=== PATIENT | male | born 1985 ===

== ENCOUNTER 2022-05-25 18:37 | Inpatient (IN) | payer OTHER, BC ==
[~2022-05-25] VITALS: Ht 182.9 cm; Wt 102.0 kg
[~2022-05-25 18:37] MED LIST: CETI10 PO; CYCL10 PO; DIPH50 PO; HYDACE5 PO; METPRE4DP PO; RXHYDACE PO
[2022-05-25 19:24] LABS: Hematocrit 41.9 % (37.0-53.0); Hemoglobin 15.1 g/dL (13.5-17.5); Mean Corpuscular HGB 29.6 pg (26.0-34.0); Mean Corpuscular Volume 82 fL (80-100); Mean Platelet Volume 10.7 fL (9.1-12.4); Platelet Count 310 K/mm3 (150-400); RDW Coefficient Variation 11.9 % (11.7-14.2); RDW Standard Deviation 35.9 fL (35.1-46.3); White Blood Cell Count 24.82 K/mm3 (4.00-11.30)
[2022-05-25 19:33] LABS: Albumin, Blood 2.5 g/dL (3.4-5.0); Albumin/Globulin Ratio 0.5 (0.8-1.8); Bilirubin, Total 1.2 mg/dL (0.1-1.0); Bun/Creatinine Ratio 18.2 (12.0-20.0); Calcium, Blood 8.3 mg/dL (8.5-10.1); Creatinine, Blood 0.71 mg/dL (0.60-1.20); Globulin, Blood 5.3 g/dL (2.2-4.0); Potassium, Blood 4.2 mmol/L (3.5-5.5); Total Protein, Blood 7.8 g/dL (6.4-8.2)
[2022-05-25 19:48] LABS: BAND PERCENT MAN 3 % (0-8); BASOPHILS PERCENT MAN 0 % (0-2); EOSINOPHILS PERCENT MAN 0 % (0-6); LYMPHOCYTES ABSOLUTE MAN 1.48 K/mm3 (0.84-5.20); LYMPHOCYTES PERCENT MAN 6 % (21-46); MONOCYTES ABSOLUTE MAN 2.48 K/mm3 (0.16-1.47); MONOCYTES PERCENT MAN 10 % (4-13); NEUTROPHILS ABSOLUTE MAN 20.84 K/mm3 (1.96-9.15); SEG NEUTROPHILS PERCENT MAN 81 % (41-73); TOTAL CELLS COUNTED 100
[2022-05-25 19:52] LABS: Influenza A, PCR NEGATIVE (NEGATIVE); Influenza B, PCR NEGATIVE (NEGATIVE); Resp Syncytial Virus, PCR NEGATIVE (NEGATIVE); SARS-Cov-2 (COVID-19) PCR, MMC NEGATIVE (NEGATIVE)
[2022-05-25 20:13] LABS: Beta-hydroxybutyrate 10.9 mg/dL (0.2-2.8)
[2022-05-25 21:10] LABS: Bicarbonate Venous 25.5 mmol/L (24.0-30.0); PCO2 Venous 37.3 mmHg (38-42); pH Blood Venous 7.44 (7.34-7.37)
[2022-05-25 23:30] LABS: Bun/Creatinine Ratio 12.9 (12.0-20.0); Calcium, Blood 7.6 mg/dL (8.5-10.1); Creatinine, Blood 0.85 mg/dL (0.60-1.20); Potassium, Blood 4.6 mmol/L (3.5-5.5)
[2022-05-26 06:04] LABS: Hemoglobin 13.3 g/dL (13.5-17.5); Mean Corpuscular HGB 29.4 pg (26.0-34.0); Mean Corpuscular Volume 84 fL (80-100); Mean Platelet Volume 10.8 fL (9.1-12.4); Platelet Count 266 K/mm3 (150-400); RDW Coefficient Variation 12.2 % (11.7-14.2); RDW Standard Deviation 37.4 fL (35.1-46.3); Red Blood Cell Count 4.53 M/mm3 (4.30-5.90); White Blood Cell Count 25.05 K/mm3 (4.00-11.30)
[2022-05-26 06:15] LABS: Albumin/Globulin Ratio 0.5 (0.8-1.8); Bun/Creatinine Ratio 15.1 (12.0-20.0); Calcium, Blood 7.4 mg/dL (8.5-10.1); Creatinine, Blood 0.73 mg/dL (0.60-1.20); Globulin, Blood 4.4 g/dL (2.2-4.0); Potassium, Blood 4.1 mmol/L (3.5-5.5); Total Protein, Blood 6.4 g/dL (6.4-8.2)
[2022-05-26 07:26] LABS: BAND PERCENT MAN 15 % (0-8); BASOPHILS PERCENT MAN 0 % (0-2); EOSINOPHILS PERCENT MAN 0 % (0-6); LYMPHOCYTES PERCENT MAN 4 % (21-46); MONOCYTES PERCENT MAN 4 % (4-13); NEUTROPHILS ABSOLUTE MAN 23.04 K/mm3 (1.96-9.15); SEG NEUTROPHILS PERCENT MAN 77 % (41-73); TOTAL CELLS COUNTED 100
--- NOTE | 2022-05-26 14:40 | NUR ---
ARRIVAL TO MEDICAL FLOOR: PT ARRIVED TO MEDICAL FLOOR AT 1330 VIA ER BED. PT IV'S CURRENTLY RUNNING WITH NS AND VACOMYCIN. PT WAS SHOWN HOW TO USE CALL LIGHT. TALK TO THE DOCTOR WHO PUT IN AN ORDER FOR TELE. AWAITING ARRIVAL FOR TELE BOX. PT'S IN ROOM. PT IS NOT C/O PAIN OR NAUSEA AT THIS TIME.
[2022-05-26] MEDS ORDERED: HUMALOG100 UNIT/1 (17:28)
--- NOTE | 2022-05-26 17:49 | NUR ---
SHIFT SUMMARY: PATIENT ALERT AND ORIENTED X4. PT ARRIVED FROM ED AROUND 1530. TELE WAS APPLIED TO PT DUE TO TACHYCARDIA. IV CURRENTLY INFUSING WITH NS W/O PAIN OR REDNESS. PT IS PLEASANT AND COOPERATIVE WITH ALL CARE. PT PLACED ON A CARB INSULIN DIET. PT ARRIVED WITH A TEMP OF 100.7. GAVE HIM 650MG OF TYLENOL TO HELP WITH THE FEVER. PT'S IN ROOM AND HELPING WITH CARE. NO NEEDS AT THIS TIME. CALL LIGHT IN REACH. BED IN LOWEST POSITION. WILL CONTINUE TO MONITOR.
[2022-05-27 05:32] LABS: BASOPHILS ABSOLUTE AUTO 0.08 K/mm3 (0.00-0.23); BASOPHILS PERCENT AUTO 0 % (0-2); EOSINOPHILS ABSOLUTE AUTO 0.02 K/mm3 (0.00-0.68); EOSINOPHILS PERCENT AUTO 0 % (0-6); Hematocrit 37.3 % (37.0-53.0); Hemoglobin 13.2 g/dL (13.5-17.5); IMMATURE GRAN ABSOLUTE AUTO 0.41 K/mm3 (0.00-0.10); IMMATURE GRAN PERCENT AUTO 2 % (0-1); LYMPHOCYTES ABSOLUTE AUTO 1.49 K/mm3 (0.84-5.20); LYMPHOCYTES PERCENT AUTO 6 % (21-46); MONOCYTES ABSOLUTE AUTO 1.03 K/mm3 (0.16-1.47); MONOCYTES PERCENT AUTO 4 % (4-13); Mean Corpuscular HGB 29.3 pg (26.0-34.0); Mean Corpuscular HGB Conc 35.4 g/dL (31.5-36.5); Mean Corpuscular Volume 83 fL (80-100); Mean Platelet Volume 11.1 fL (9.1-12.4); NEUTROPHILS ABSOLUTE AUTO 21.52 K/mm3 (1.96-9.15); NEUTROPHILS PERCENT AUTO 88 % (41-73); Platelet Count 258 K/mm3 (150-400); RDW Coefficient Variation 12.6 % (11.7-14.2); RDW Standard Deviation 38.5 fL (35.1-46.3); White Blood Cell Count 24.55 K/mm3 (4.00-11.30)
[2022-05-27 05:53] LABS: Albumin, Blood 1.8 g/dL (3.4-5.0); Albumin/Globulin Ratio 0.4 (0.8-1.8); Bilirubin, Total 0.9 mg/dL (0.1-1.0); Bun/Creatinine Ratio 15.8 (12.0-20.0); Calcium, Blood 7.4 mg/dL (8.5-10.1); Creatinine, Blood 0.57 mg/dL (0.60-1.20); Globulin, Blood 4.3 g/dL (2.2-4.0); Total Protein, Blood 6.1 g/dL (6.4-8.2)
[2022-05-27 07:10] LABS: HIV AB/P24 AG SCREEN Non Reactive (Non Reactive)
--- NOTE | 2022-05-27 07:25 | NUR ---
A/OX4; CALM/ COOPERATIVE. DENIES PAIN AND DENIES NAUSEA. SBA TO BR. LUNGS DIMINISHED/ SHALLOW. 4L NC. TELE: ST 120s. ABX PER ORDER CALL LIGHT IN REACH; ENCOURAGED TO MAKE NEEDS KNOWN. EARPLUGS PROVIDED/ SLEEP PROMOTED.
[2022-05-27 13:23] LABS: Vancomycin, Trough 5.8 ug/mL (5.0-10.0)
--- NOTE | 2022-05-27 17:43 | NUR ---
SHIFT SUMMARY NO ACUTE CHANGES DURING SHIFT. PT ALERT AND ORIENTED, CALLS APPROPRIATELY. PT ON 4L NC, SPO2 > 92%. PT SBA TO BATHROOM. PT FEBRILE THIS AFTERNOON, 102.0, MEDICATED WITH TYLENOL. MONITOR FOR EFFECTIVENESS. PT ON PRECAUTIONS TO R/O CDIFF D/T MULTIPLE OCCURENCES OF DIARRHEA. WILL CONTINUE TO MONITOR. CALL LIGHT WITHIN REACH.
[2022-05-28 05:57] LABS: Adenovirus F 40/41 Not Detected (NOT DETECT); Astrovirus Not Detected (NOT DETECT); Campylobacter Sp Not Detected (NOT DETECT); Cryptosporidium Not Detected (NOT DETECT); Cyclospora Cayetanensis Not Detected (NOT DETECT); E. Coli O157 Not Detected (NOT DETECT); Entamoeba Histolytica Not Detected (NOT DETECT); Enteroaggregative E. coli-EAEC Not Detected (NOT DETECT); Enteropathogenic E. coli-EPEC Not Detected (NOT DETECT); Enterotoxigenic E. coli-ETEC Not Detected (NOT DETECT); Giardia Lamblia Not Detected (NOT DETECT); Norovirus GI/GII Not Detected (NOT DETECT); Plesiomonas Shigelloides Not Detected (NOT DETECT); Rotavirus A Not Detected (NOT DETECT); Salmonella Sp Not Detected (NOT DETECT); Sapovirus Not Detected (NOT DETECT); Shiga Toxin-prod E. coli-STEC Not Detected (NOT DETECT); Shigella/Enteroin E. coli-EIEC Not Detected (NOT DETECT); Vibrio Cholerae Not Detected (NOT DETECT); Vibrio Sp Not Detected (NOT DETECT); Yersinia Enterocolitica Not Detected (NOT DETECT)
[2022-05-28 06:05] LABS: BASOPHILS ABSOLUTE AUTO 0.04 K/mm3 (0.00-0.23); BASOPHILS PERCENT AUTO 0 % (0-2); EOSINOPHILS ABSOLUTE AUTO 0.03 K/mm3 (0.00-0.68); EOSINOPHILS PERCENT AUTO 0 % (0-6); Hematocrit 34.9 % (37.0-53.0); Hemoglobin 12.5 g/dL (13.5-17.5); IMMATURE GRAN PERCENT AUTO 2 % (0-1); LYMPHOCYTES ABSOLUTE AUTO 1.31 K/mm3 (0.84-5.20); LYMPHOCYTES PERCENT AUTO 8 % (21-46); MONOCYTES ABSOLUTE AUTO 0.98 K/mm3 (0.16-1.47); MONOCYTES PERCENT AUTO 6 % (4-13); Mean Corpuscular HGB 29.2 pg (26.0-34.0); Mean Corpuscular HGB Conc 35.8 g/dL (31.5-36.5); Mean Corpuscular Volume 82 fL (80-100); NEUTROPHILS ABSOLUTE AUTO 14.02 K/mm3 (1.96-9.15); NEUTROPHILS PERCENT AUTO 84 % (41-73); Platelet Count 251 K/mm3 (150-400); RDW Coefficient Variation 12.6 % (11.7-14.2); RDW Standard Deviation 37.7 fL (35.1-46.3); Red Blood Cell Count 4.28 M/mm3 (4.30-5.90); White Blood Cell Count 16.78 K/mm3 (4.00-11.30)
[2022-05-28 06:33] LABS: Albumin, Blood 1.7 g/dL (3.4-5.0); Albumin/Globulin Ratio 0.4 (0.8-1.8); Bilirubin, Total 1.3 mg/dL (0.1-1.0); Bun/Creatinine Ratio 14.1 (12.0-20.0); Calcium, Blood 7.5 mg/dL (8.5-10.1); Creatinine, Blood 0.57 mg/dL (0.60-1.20); Globulin, Blood 4.5 g/dL (2.2-4.0); Potassium, Blood 3.4 mmol/L (3.5-5.5); Total Protein, Blood 6.2 g/dL (6.4-8.2)
--- NOTE | 2022-05-28 17:50 | NUR ---
SHIFT SUMMARY NO ACUTE CHANGES DURING SHIFT. PT ALERT AND ORIENTED, CALLS APPROPRIATELY. PT REMAINS ON 4L NC, SPO2 > 92%. IV ABX CHANGED TODAY, PT REMAINS FEBRILE. PRN TYLENOL ADMINISTERED PER EMAR. PT INDEPENDENT IN ROOM. CDIFF RESULTS -, PRECAUTIONS REMOVED. WILL CONTINUE TO MONITOR. CALL LIGHT WITHIN REACH.
--- NOTE | 2022-05-29 04:28 | NUR ---
A/OX4; CALM, PLEASANT, AND COOPERATIVE. 4 L O2 VIA NC; SPO2 LOW 90s. IVF AND IV ABX PER EMAR ORDERS. TYLENOL GIVEN FOR 4/10 GENERALIZED ACHING; SLEEPING AT REASSESSMENT. SBA AT NIGHT (DIZZY AT TIMES, IV LINE). SLEEP PROMOTED. BED ALARM SET. CALL LIGHT IN REACH; ENCOURAGED TO MAKE NEEDS KNOWN.
[2022-05-29 06:08] LABS: HIV AB/P24 AG SCREEN Non Reactive (Non Reactive)
[2022-05-29 06:21] LABS: BASOPHILS ABSOLUTE AUTO 0.06 K/mm3 (0.00-0.23); BASOPHILS PERCENT AUTO 0 % (0-2); EOSINOPHILS ABSOLUTE AUTO 0.02 K/mm3 (0.00-0.68); EOSINOPHILS PERCENT AUTO 0 % (0-6); Hematocrit 38.6 % (37.0-53.0); Hemoglobin 13.1 g/dL (13.5-17.5); IMMATURE GRAN ABSOLUTE AUTO 0.38 K/mm3 (0.00-0.10); IMMATURE GRAN PERCENT AUTO 3 % (0-1); LYMPHOCYTES PERCENT AUTO 9 % (21-46); MONOCYTES ABSOLUTE AUTO 0.95 K/mm3 (0.16-1.47); MONOCYTES PERCENT AUTO 7 % (4-13); Mean Corpuscular HGB 28.7 pg (26.0-34.0); Mean Corpuscular HGB Conc 33.9 g/dL (31.5-36.5); Mean Corpuscular Volume 85 fL (80-100); Mean Platelet Volume 10.6 fL (9.1-12.4); NEUTROPHILS ABSOLUTE AUTO 11.13 K/mm3 (1.96-9.15); NEUTROPHILS PERCENT AUTO 81 % (41-73); Platelet Count 295 K/mm3 (150-400); RDW Coefficient Variation 13.1 % (11.7-14.2); RDW Standard Deviation 39.9 fL (35.1-46.3); Red Blood Cell Count 4.57 M/mm3 (4.30-5.90); White Blood Cell Count 13.74 K/mm3 (4.00-11.30)
[2022-05-29 06:33] LABS: Albumin, Blood 1.7 g/dL (3.4-5.0); Albumin/Globulin Ratio 0.4 (0.8-1.8); Bilirubin, Total 1.1 mg/dL (0.1-1.0); Bun/Creatinine Ratio 14.4 (12.0-20.0); Calcium, Blood 7.5 mg/dL (8.5-10.1); Creatinine, Blood 0.55 mg/dL (0.60-1.20); Globulin, Blood 4.5 g/dL (2.2-4.0); Potassium, Blood 3.3 mmol/L (3.5-5.5); Total Protein, Blood 6.2 g/dL (6.4-8.2)
--- NOTE | 2022-05-29 17:45 | NUR ---
SHIFT SUMMARY AXO, PLEASANT AND COOPERATIVE WITH CARE. VSS THOUGH PT MEDICATED FOR FEVER X1 THIS SHIFT PER EMAR. CBG ACHS, MEDICATED PER EMAR. NO ACUTE CHANGES THIS SHIFT. PT OOB WITH ASSISTANCE OF HIS SPOUSE WHO IS AT BEDSIDE PT ON 2.5L VIA NC, 93%. IV PATENT AND INFUSING PER EMAR. BED IN LOW POSITION, CALL LIGHT WITHIN REACH.
--- NOTE | 2022-05-30 05:01 | NUR ---
A/OX4; CALM, PLEASANT, AND COOPERATIVE. 4 L O2 VIA NC; SPO2 MID 90s. IVF AND IV ABX PER EMAR ORDERS. SBA AT NIGHT (DIZZY AT TIMES, IV LINE). SLEEP PROMOTED. BED ALARM SET. CALL LIGHT IN REACH; ENCOURAGED TO MAKE NEEDS KNOWN.
[2022-05-30 06:52] LABS: Hematocrit 35.9 % (37.0-53.0); Hemoglobin 12.5 g/dL (13.5-17.5); Mean Corpuscular HGB 29.3 pg (26.0-34.0); Mean Corpuscular HGB Conc 34.8 g/dL (31.5-36.5); Mean Corpuscular Volume 84 fL (80-100); Mean Platelet Volume 10.8 fL (9.1-12.4); Platelet Count 338 K/mm3 (150-400); RDW Coefficient Variation 13.2 % (11.7-14.2); RDW Standard Deviation 39.8 fL (35.1-46.3); Red Blood Cell Count 4.26 M/mm3 (4.30-5.90); White Blood Cell Count 13.75 K/mm3 (4.00-11.30)
[2022-05-30 07:11] LABS: Albumin, Blood 1.7 g/dL (3.4-5.0); Albumin/Globulin Ratio 0.4 (0.8-1.8); Bilirubin, Total 0.9 mg/dL (0.1-1.0); Bun/Creatinine Ratio 13.8 (12.0-20.0); Calcium, Blood 7.6 mg/dL (8.5-10.1); Creatinine, Blood 0.51 mg/dL (0.60-1.20); Globulin, Blood 4.5 g/dL (2.2-4.0); Potassium, Blood 3.3 mmol/L (3.5-5.5); Total Protein, Blood 6.2 g/dL (6.4-8.2)
[2022-05-30 09:00] LABS: BAND PERCENT MAN 1 % (0-8); BASOPHILS PERCENT MAN 0 % (0-2); EOSINOPHILS PERCENT MAN 0 % (0-6); LYMPHOCYTES ABSOLUTE MAN 1.65 K/mm3 (0.84-5.20); LYMPHOCYTES PERCENT MAN 12 % (21-46); MONOCYTES ABSOLUTE MAN 0.55 K/mm3 (0.16-1.47); MONOCYTES PERCENT MAN 4 % (4-13); MYELOCYTE ABSOLUTE MAN 0.27 K/mm3 (0.00-0.00); MYELOCYTE PERCENT MAN 2 % (0-0); NEUTROPHILS ABSOLUTE MAN 11.27 K/mm3 (1.96-9.15); SEG NEUTROPHILS PERCENT MAN 81 % (41-73); TOTAL CELLS COUNTED 100
--- NOTE | 2022-05-30 12:50 | NUR ---
INITIAL SKIN ASSESSMENT: DISCUSSED SKIN WITH THE PATIENT, ESPECIALLY POTENTIAL PRESSURE POINTS. PATIENT REPORTS TENDERNESS AT HIS COCCYX. SMALL REDDEDENED AREA PRESENT AROUND THE COCCYX. AT THE CENTER IS A 1CM X 1CM [place]O [place] THAT IS NON-BLANCHABLE. MEPILEX PLACED. EDUCATION PROVIDED ON PRESSURE INJURIES. HEAD TO TOE SKIN ASSESSMENT PERFORMED WITH KATHARINA BATISTA RN.
--- NOTE | 2022-05-30 19:53 | NUR ---
END OF SHIFT SUMMARY: PATIENT DENIED PAIN OR DISCOMFORT THROUGHOUT THE SHIFT. PATIENT DENIED SHORTNESS OF BREATH OR DIFFICULTY BREATHING. PATIENT UP TO THE SHOWER - TOLERATED WELL. PATIENT REPORTED DISSATISFACTION WITH HIS INITIAL EDUCATION ON DIABETES 4 YEARS AGO. CONSULTED WITH THIRD SHIFT LIEUTENANT WHO WAS ABLE TO SPEND TIME EDUCATING AND ANSWERING QUESTIONS. PATIENT EXPRESSES MOTIVATION TO IMPROVE HIS DIET AND EXERCISE AND GAIN BETTER CONTROL OVER HIS DIABETES. PATIENT'S AT BEDSIDE THIS EVENING. SHE IS SUPPORTIVE OF THE PATIENT AND INVOLVED WITH HIS HEALTH AND PLAN OF CARE.
[2022-05-31 06:03] LABS: Hematocrit 37.4 % (37.0-53.0); Hemoglobin 12.8 g/dL (13.5-17.5); Mean Corpuscular HGB 28.9 pg (26.0-34.0); Mean Corpuscular HGB Conc 34.2 g/dL (31.5-36.5); Mean Corpuscular Volume 84 fL (80-100); Mean Platelet Volume 10.1 fL (9.1-12.4); Platelet Count 412 K/mm3 (150-400); RDW Coefficient Variation 13.2 % (11.7-14.2); RDW Standard Deviation 40.9 fL (35.1-46.3); Red Blood Cell Count 4.43 M/mm3 (4.30-5.90); White Blood Cell Count 11.82 K/mm3 (4.00-11.30)
[2022-05-31 06:31] LABS: BAND PERCENT MAN 1 % (0-8); BASOPHILS PERCENT MAN 0 % (0-2); EOSINOPHILS ABSOLUTE MAN 0.23 K/mm3 (0.00-0.68); EOSINOPHILS PERCENT MAN 2 % (0-6); LYMPHOCYTES ABSOLUTE MAN 0.94 K/mm3 (0.84-5.20); LYMPHOCYTES PERCENT MAN 8 % (21-46); METAMYELOCYTE ABSOLUTE MAN 0.11 K/mm3 (0.00-0.00); METAMYELOCYTE PERCENT MAN 1 % (0-0); MONOCYTES ABSOLUTE MAN 0.47 K/mm3 (0.16-1.47); MONOCYTES PERCENT MAN 4 % (4-13); MYELOCYTE ABSOLUTE MAN 0.11 K/mm3 (0.00-0.00); MYELOCYTE PERCENT MAN 1 % (0-0); NEUTROPHILS ABSOLUTE MAN 9.92 K/mm3 (1.96-9.15); SEG NEUTROPHILS PERCENT MAN 83 % (41-73); TOTAL CELLS COUNTED 100
[2022-05-31 06:38] LABS: Albumin, Blood 1.7 g/dL (3.4-5.0); Albumin/Globulin Ratio 0.4 (0.8-1.8); Bilirubin, Total 0.8 mg/dL (0.1-1.0); Bun/Creatinine Ratio 14.6 (12.0-20.0); Calcium, Blood 7.7 mg/dL (8.5-10.1); Creatinine, Blood 0.55 mg/dL (0.60-1.20); Globulin, Blood 4.5 g/dL (2.2-4.0); Potassium, Blood 3.6 mmol/L (3.5-5.5); Total Protein, Blood 6.2 g/dL (6.4-8.2)
--- NOTE | 2022-05-31 07:30 | NUR ---
A/OX4; CALM, PLEASANT, AND COOPERATIVE. 4 L O2 VIA NC; SPO2 MID 90s. CRACKLES BLL. IVF AND IV ABX PER EMAR ORDERS. SBA AT NIGHT (DIZZY AT TIMES, IV LINE). CARE CLUSTERED/ SLEEP PROMOTED. BED ALARM SET. CALL LIGHT IN REACH; ENCOURAGED TO MAKE NEEDS KNOWN.
--- NOTE | 2022-05-31 17:06 | NUR ---
SHIFT SUMMARY: PATIENT A&OX4. PLEASANT, CALM AND COOPERATIVE WITH CARE. USES CALL LIGHT APPROPRIATELY AND ABLE TO ADVOCATE FOR HIS NEEDS. PATIENT HAD A LOW GRADE FEVER 99.1-99.3 THIS SHIFT. RECEIVED SCHEDULED ANTIBIOTICS. PATIENT ON 3L VIA NC c SPO2 92% T/O SHIFT. DENIES SOB. LUNGS HAS FINE CRACKLES T/O TO AUSCULTATION. PATIENT BS THIS SHIFT RANGES FROM 199-275. RECEIVED INSULIN PER EMAR SLIDING SCALE COVERAGE. IV TO L AC SALINE LOCKED AND IV TO R HAND INFUSING NS AT 75 MLS/HR. VITAL SIGNS REVEIWED. USES URINAL INDEPENDENTLY AT BEDSIDE. CALL LIGHT IN REACH.
[2022-06-01 05:43] LABS: Mean Corpuscular HGB 29.3 pg (26.0-34.0); Mean Corpuscular HGB Conc 34.2 g/dL (31.5-36.5); Mean Corpuscular Volume 86 fL (80-100); Mean Platelet Volume 9.7 fL (9.1-12.4); Platelet Count 451 K/mm3 (150-400); RDW Coefficient Variation 13.4 % (11.7-14.2); RDW Standard Deviation 41.7 fL (35.1-46.3); Red Blood Cell Count 4.44 M/mm3 (4.30-5.90); White Blood Cell Count 12.84 K/mm3 (4.00-11.30)
--- NOTE | 2022-06-01 06:04 | NUR ---
SPRAY MACHINE OPERATOR SUMMARY: A&Ox4. PLEASANT AND COOPERATIVE WITH CARE. CALLS APPROPRIATELY AND ABLE TO COMMUNICATE NEEDS EFFECTIVELY. INDEPENDENT WITHIN ROOM. VOIDING WITHOUT DIFFICULTY. NEW BAG OF FLUIDS HUNG @ MIDNIGHT. NO C/O PAIN OR DISCOMFORT. LABS DRAWN THIS AM. VSS. NO ACUTE CONCERNS T/O THE NIGHT. WILL REPORT TO ONCOMING RN.
[2022-06-01 06:10] LABS: Calcium, Blood 7.8 mg/dL (8.5-10.1); Creatinine, Blood 0.53 mg/dL (0.60-1.20); Potassium, Blood 3.6 mmol/L (3.5-5.5)
[2022-06-01 07:46] LABS: BAND PERCENT MAN 1 % (0-8); BASOPHILS PERCENT MAN 0 % (0-2); EOSINOPHILS ABSOLUTE MAN 0.12 K/mm3 (0.00-0.68); EOSINOPHILS PERCENT MAN 1 % (0-6); LYMPHOCYTES ABSOLUTE MAN 1.15 K/mm3 (0.84-5.20); LYMPHOCYTES PERCENT MAN 9 % (21-46); METAMYELOCYTE ABSOLUTE MAN 0.12 K/mm3 (0.00-0.00); METAMYELOCYTE PERCENT MAN 1 % (0-0); MONOCYTES ABSOLUTE MAN 0.51 K/mm3 (0.16-1.47); MONOCYTES PERCENT MAN 4 % (4-13); NEUTROPHILS ABSOLUTE MAN 10.91 K/mm3 (1.96-9.15); SEG NEUTROPHILS PERCENT MAN 84 % (41-73); TOTAL CELLS COUNTED 100
--- NOTE | 2022-06-01 18:00 | NUR ---
SHIFT SUMMARY: PT A&O X4, PLEASANT, COMMUNICATES WITH STAFF WELL. PT RECEVIED ABX W/O S/S OF ADVERSE REACTIONS. CHARGE NURSE ADRIEL PLACED POWERGLIDE PER DOCTOR ORDERS FOR OUTPATIENT ABX ADMINISTARTION POST DISCHARGE. PT AMBULATED TO THE BATHROOM AND SHOWERED INDEPENDANTLY. PT HAD NO COMPLAINTS OF PAIN THROUGHOUT THE SHIFT. PT A BEDSIDE THROUGHOUT THE SHIFT. PT IN BED WITH CALL LIGHT WITHIN REACH.
[2022-06-02 06:24] LABS: Hematocrit 43.6 % (37.0-53.0); Hemoglobin 14.4 g/dL (13.5-17.5); Mean Corpuscular HGB 28.9 pg (26.0-34.0); Mean Corpuscular Volume 88 fL (80-100); Mean Platelet Volume 9.4 fL (9.1-12.4); Platelet Count 531 K/mm3 (150-400); RDW Coefficient Variation 13.6 % (11.7-14.2); RDW Standard Deviation 42.9 fL (35.1-46.3); Red Blood Cell Count 4.98 M/mm3 (4.30-5.90); White Blood Cell Count 14.33 K/mm3 (4.00-11.30)
--- NOTE | 2022-06-02 06:53 | NUR ---
WELL LOGGING CAPTAIN MUD ANALYSIS SUMMARY: A&Ox4. PLEASANT AND COOPERATIVE WITH CARE. INDEPENDENT WITHIN ROOM. CALLS APPROPRIATELY AND IS ABLE TO COMMUNICATE NEEDS EFFECTIVELY. LABS DRAWNT THIS AM; NOTHING URGENT. ORDER FOR DIFLUCAN RECEIVED TO START AT 0900 FOR SPUTUM CULTURE + THRUSH. VSS. PLAN TO DC HOME TODAY. REPORT TO ONCOMING RN.
[2022-06-02 07:05] LABS: BAND PERCENT MAN 4 % (0-8); BASOPHILS PERCENT MAN 0 % (0-2); EOSINOPHILS PERCENT MAN 0 % (0-6); LYMPHOCYTES ABSOLUTE MAN 2.72 K/mm3 (0.84-5.20); LYMPHOCYTES PERCENT MAN 19 % (21-46); METAMYELOCYTE ABSOLUTE MAN 0.14 K/mm3 (0.00-0.00); METAMYELOCYTE PERCENT MAN 1 % (0-0); MONOCYTES ABSOLUTE MAN 0.71 K/mm3 (0.16-1.47); MONOCYTES PERCENT MAN 5 % (4-13); MYELOCYTE ABSOLUTE MAN 0.14 K/mm3 (0.00-0.00); MYELOCYTE PERCENT MAN 1 % (0-0); SEG NEUTROPHILS PERCENT MAN 70 % (41-73); TOTAL CELLS COUNTED 100
[2022-06-02 07:20] LABS: Albumin, Blood 2.1 g/dL (3.4-5.0); Albumin/Globulin Ratio 0.4 (0.8-1.8); Bilirubin, Total 0.6 mg/dL (0.1-1.0); Bun/Creatinine Ratio 28.2 (12.0-20.0); Calcium, Blood 8.7 mg/dL (8.5-10.1); Creatinine, Blood 0.53 mg/dL (0.60-1.20); Globulin, Blood 5.5 g/dL (2.2-4.0); Potassium, Blood 4.1 mmol/L (3.5-5.5); Total Protein, Blood 7.6 g/dL (6.4-8.2)
--- NOTE | 2022-06-02 19:14 | NUR ---
SHIFT SUMMARY: PT A&O X4, PLEASANT AND COOPERATIVE. PT HAD MILD COMPLAINTS OF BACK PAIN, PT HAS WARM THERAPY TO AID IN PAIN CONTROL AND PRN PAIN MEDICATION FOR PAIN MANAGEMENT. PT RECEVIED IV ABX WITH NO S/S OF ADVERSE REACTIONS. PT WAS ON 3L NC OF O2, PT O2 REMOVED PER DR. SARAVIA VERBAL ORDER. PT O2 STABLE WITH NO SOB OR DYSPNEA WITH MOVEMENT. PT IN BED WITH CALL LIGHT WITHIN REACH.
--- NOTE | 2022-06-03 03:21 | NUR ---
SHIFT SUMMARY; NO ACUTE CHANGES IN CONDITION NOTED DURING NOC SHIFT. PATIENT IS PLEASANT AND ALERT AND ORIENTED MALE. HE HAS A POWER GLIDE TO HIS UPPER RIGHT ARM THAT FLUSHES AND DRAWS. HIS LUNGS ARE CLEAR IN UPPER LOBES AND CRACKLES NOTED IN THE BASES. NO COUGH AT TIME OF ASSESSMENT. HE IS INDEPENDANT IN HIS ROOM AND IS ABLE TO USE CALL LIGHT TO MAKE HIS NEEDS KNOWN. HIS VITAL SIGNS ARE STABLE AND HIS HR IS 63. HE IS NOT FEBRILE. HE IS AO X 4. AND IS EAGER TO RETURN HOME. PER PATIENT HE IS NOT SURE WHY HE IS STILL HER IF HE CAN BE GETTING ANTIBIOTICS AT THE OUTPATIENT [facility]ION [facility]. WILL PASS ON HIS CONCERNS TO DAY SHIFT RN.
[2022-06-03 05:35] LABS: BASOPHILS ABSOLUTE AUTO 0.13 K/mm3 (0.00-0.23); BASOPHILS PERCENT AUTO 1 % (0-2); EOSINOPHILS ABSOLUTE AUTO 0.06 K/mm3 (0.00-0.68); EOSINOPHILS PERCENT AUTO 1 % (0-6); Hematocrit 42.6 % (37.0-53.0); Hemoglobin 14.5 g/dL (13.5-17.5); IMMATURE GRAN ABSOLUTE AUTO 0.72 K/mm3 (0.00-0.10); IMMATURE GRAN PERCENT AUTO 6 % (0-1); LYMPHOCYTES ABSOLUTE AUTO 2.04 K/mm3 (0.84-5.20); LYMPHOCYTES PERCENT AUTO 16 % (21-46); MONOCYTES ABSOLUTE AUTO 0.56 K/mm3 (0.16-1.47); MONOCYTES PERCENT AUTO 4 % (4-13); Mean Corpuscular HGB 29.1 pg (26.0-34.0); Mean Corpuscular Volume 85 fL (80-100); Mean Platelet Volume 9.2 fL (9.1-12.4); NEUTROPHILS ABSOLUTE AUTO 9.54 K/mm3 (1.96-9.15); NEUTROPHILS PERCENT AUTO 73 % (41-73); Platelet Count 547 K/mm3 (150-400); RDW Coefficient Variation 13.3 % (11.7-14.2); RDW Standard Deviation 40.8 fL (35.1-46.3); Red Blood Cell Count 4.99 M/mm3 (4.30-5.90); White Blood Cell Count 13.05 K/mm3 (4.00-11.30)
[2022-06-03 07:14] LABS: Albumin, Blood 2.3 g/dL (3.4-5.0); Albumin/Globulin Ratio 0.4 (0.8-1.8); Bilirubin, Total 0.5 mg/dL (0.1-1.0); Bun/Creatinine Ratio 23.9 (12.0-20.0); Calcium, Blood 8.6 mg/dL (8.5-10.1); Creatinine, Blood 0.63 mg/dL (0.60-1.20); Globulin, Blood 5.5 g/dL (2.2-4.0); Potassium, Blood 4.3 mmol/L (3.5-5.5); Total Protein, Blood 7.8 g/dL (6.4-8.2)
[2022-06-03] MEDS ORDERED: FLUC200 PO (12:18)
[2022-06-03] MEDS ORDERED: BASAGLAR K100 UNIT/1 SC (12:18)
[2022-06-03] MEDS ORDERED: JARDIANCE25 MG PO (12:18)
[2022-06-03] MEDS ORDERED: VISBIOME 112.51 EACH PO (12:21)
[2022-06-03] MEDS ORDERED: HUMALOG KW100 UNIT/1 SC (12:22)
--- NOTE | 2022-06-03 16:37 | NUR ---
PT DC'd HOME WITH AT 1250. DISCHARGE INSTRUCTIONS AND EDUCATION MATERIAL EXPLAINED TO PT. ALL QUESTIONS ANSWERED. PT VERBALIZED NO NEW CONCERNS OR QUESTIONS. POWER MEG LEFT IN PLACE D/T PT COMING TO [facility] TO CONTINUE IV ANTIBIOTICS. PT INSTRUCTED TO KEEP CLEAN AND DRY AND TO COVER IF TAKING A SHOWER. PT SHOWN HOW TO COVER IV SITE TO KEEP DRY. ALL BELONGINGS SENT HOME WITH PT. PT TAKEN BY WHEELCHAIR TO WAITING VEHICLE.
== END 2022-06-03 13:11 | disposition home or self-care (01) | DRG 871 ==
LOC: ER 18:37 → MEDS 22:16 → ERHOLD 22:16 → MEDS 22:16
PROVIDERS: Family Medicine; Student in an Organized Health Care Education/Training Program; ADMIT Internal Medicine
DX: A41.01 Sepsis due to Methicillin susceptible Staphylococcus aureus (principal); J15.211 Pneumonia due to Methicillin susceptible Staphylococcus aureus; J96.01 Acute respiratory failure with hypoxia; E87.1 Hypo-osmolality and hyponatremia; E87.4 Mixed disorder of acid-base balance; R65.20 Severe sepsis without septic shock; B37.9 Candidiasis, unspecified; E11.65 Type 2 diabetes mellitus with hyperglycemia; I10 Essential (primary) hypertension; E87.6 Hypokalemia; R79.89 Other specified abnormal findings of blood chemistry; F43.10 Post-traumatic stress disorder, unspecified; F41.9 Anxiety disorder, unspecified; R19.7 Diarrhea, unspecified; F90.9 Attention-deficit hyperactivity disorder, unspecified type; D75.A Glucose-6-phosphate dehydrogenase (G6PD) deficiency without anemia; F10.10 Alcohol abuse, uncomplicated; Z20.822 Contact with and (suspected) exposure to COVID-19; Z79.899 Other long term (current) drug therapy; Z79.891 Long term (current) use of opiate analgesic; Z79.4 Long term (current) use of insulin
CPT/HCPCS: 0241U; 36415; 71045; 71260; 80048; 80053; 80202; 82010; 82803; 82947; 83036; 83605; 83690; 83930; 84132; 84145; 84443; 84484; 85025; 87040; 87070; 87077; 87147; 87186; 87205; 87389; 87449; 87507; 93005; 93010; 93306; 94640; 94664; 94760; 96374; 96375; 99285-25; A9270; J0456; J0690; J0696; J1650; J1815; J1956; J3370; J7030; J7050; J7131; Q9967

== ENCOUNTER 2022-06-05 09:21 | Day surgery (SDC) | payer OTHER, BC ==
[~2022-06-05 09:21] MED LIST changes: +BASAGLAR K100 UNIT/1 SC; +FLUC200 PO; +HUMALOG KW100 UNIT/1 SC; +HUMALOG100 UNIT/1; +JARDIANCE25 MG PO; +VISBIOME 112.51 EACH PO
[2022-06-05] MEDS ORDERED: CEFTRIAXONE2 G1 IV (13:17)
== END 2022-06-05 10:26 | disposition home or self-care (01) ==
LOC: ATC 09:21
DX: R78.81 Bacteremia (principal); B95.61 Methicillin susceptible Staphylococcus aureus infection as the cause of diseases classified elsewhere; I10 Essential (primary) hypertension; E11.9 Type 2 diabetes mellitus without complications
CPT/HCPCS: 96374; J0696

== ENCOUNTER 2022-06-11 01:59 | Day surgery (SDC) | payer OTHER, BC ==
[~2022-06-11 01:59] MED LIST changes: +CEFTRIAXONE2 G1 IV
== END 2022-06-11 10:02 | disposition home or self-care (01) ==
LOC: ATC 01:59
DX: R78.81 Bacteremia (principal); B95.61 Methicillin susceptible Staphylococcus aureus infection as the cause of diseases classified elsewhere; B37.9 Candidiasis, unspecified; E11.65 Type 2 diabetes mellitus with hyperglycemia; E87.1 Hypo-osmolality and hyponatremia; J18.9 Pneumonia, unspecified organism; E87.6 Hypokalemia; I10 Essential (primary) hypertension
CPT/HCPCS: 96374; J0696